=== PATIENT | female | born 1975 | race Caucasian/White ===

== ENCOUNTER 2017-12-21 07:43 | Day surgery (SDC) | payer OTHER ==
[2017-12-21] MEDS ORDERED: FENTAnyl 50 MCG/ML VIAL (12:28)
[2017-12-21] MEDS ORDERED: CEFAZOLIN 1 GM INJ (13:12)
[2017-12-21] MEDS ORDERED: LIDOCAINE 100 MG SYRINGE (13:12)
[2017-12-21] MEDS ORDERED: SUCCINYLCHOLINE CHLORIDE 100 MG/5 ML SYG IV (13:12)
[2017-12-21] MEDS ORDERED: PROPOFOL 20 ML (13:12)
[2017-12-21] MEDS ORDERED: ROCURONIUM 50 MG INJ (13:12)
[2017-12-21] MEDS ORDERED: SUGAMMADEX SODIUM 200 MG/2 ML VIAL IV (13:13)
[2017-12-21] MEDS ORDERED: MEPERIDINE 25 MG INJ IV (13:30)
[2017-12-21] MEDS ORDERED: HYDROCODONE/APAP (7.5/325) TAB PO (13:30)
[2017-12-21] MEDS ORDERED: HYDROmorphONE 1 MG/5 ML IV SYRINGE IV ×3 (13:30)
[2017-12-21] MEDS ORDERED: FENTAnyl 50 MCG/ML VIAL IV (13:30)
[2017-12-21] MEDS ORDERED: DIPHENHYDRAMINE 50 MG INJ IV (13:30)
[2017-12-21] MEDS ORDERED: METOCLOPRAMIDE 10 MG INJ IV (13:30)
[2017-12-21] MEDS: ONDANSETRON 4 MG INJ IV (13:31)
[2017-12-21] MEDS: FENTAnyl 50 MCG/ML VIAL IV (13:32)
[2017-12-21] MEDS: HYDROCODONE/APAP (7.5/325) TAB PO (14:38)
== END 2017-12-21 15:57 | disposition home or self-care (01) ==
LOC: SDS 07:43
DX: D05.12 Intraductal carcinoma in situ of left breast (principal); E66.9 Obesity, unspecified; Z68.30 Body mass index [BMI] 30.0-30.9, adult
CPT/HCPCS: 19301; 88307

== ENCOUNTER 2018-05-31 08:19 | Day surgery (SDC) | payer OTHER ==
[~2018-05-31 08:19] MED LIST: CEFAZOLIN 2 GM/50 ML (PMX) 50 ML IVPB; SEVOFLURANE 15 MIN; SOD CHLORIDE 0.9% 1,000 ML IV
[2018-05-31] MEDS ORDERED: LIDOCAINE 1% (MPF) 30 ML INJ (11:01)
[2018-05-31] MEDS ORDERED: MEPERIDINE 100 MG INJ (11:10)
[2018-05-31] MEDS ORDERED: CEFAZOLIN 1 GM INJ (11:10)
[2018-05-31] MEDS ORDERED: ONDANSETRON 4 MG INJ (11:10)
[2018-05-31] MEDS ORDERED: LIDOCAINE 2% (SDV) 5 ML INJ (11:10)
[2018-05-31] MEDS ORDERED: METOCLOPRAMIDE 10 MG INJ (11:10)
[2018-05-31] MEDS ORDERED: PROPOFOL 20 ML (11:10)
[2018-05-31] MEDS ORDERED: FENTAnyl 50 MCG/ML VIAL IV ×3 (11:30)
[2018-05-31] MEDS ORDERED: MEPERIDINE 25 MG INJ IV (11:30)
[2018-05-31] MEDS ORDERED: OXYCODONE/ACETAMINOPHEN (5/325) TAB PO (11:30)
[2018-05-31] MEDS ORDERED: HYDROmorphONE 1 MG/5 ML IV SYRINGE IV (11:30)
[2018-05-31] MEDS ORDERED: MIDAZOLAM 1 MG/ML 2 ML INJ IV (11:30)
[2018-05-31] MEDS ORDERED: DIPHENHYDRAMINE 50 MG INJ IV (11:30)
[2018-05-31] MEDS ORDERED: HYDROCODONE/APAP (7.5/325) TAB PO ×2 (12:30)
[2018-05-31] MEDS: ONDANSETRON 4 MG INJ IV ×2 (12:34→14:57)
[2018-05-31] MEDS: HYDROmorphONE 1 MG/5 ML IV SYRINGE IV ×2 (12:35→12:41)
[2018-05-31] MEDS: OXYCODONE/ACETAMINOPHEN (5/325) TAB PO (13:30)
[2018-05-31] MEDS: METOCLOPRAMIDE 10 MG INJ IV (13:32)
== END 2018-05-31 15:27 | disposition home or self-care (01) ==
LOC: SDS 08:19
DX: C50.812 Malignant neoplasm of overlapping sites of left female breast (principal)
CPT/HCPCS: 19120; 84703; 88307